=== PATIENT | female | born 1940 | race Caucasian/White ===

== ENCOUNTER 2021-04-26 17:40 | Inpatient (IN) ==
[2021-04-26] MEDS ORDERED: cefTRIAXone 1,000 MG in SODIUM CHLORIDE 0.9% 100 ML IV STA (18:07)
[2021-04-26 18:09] LABS: Basophils % 0.2 % (0.0-0.8); Hemoglobin 8.9 GM/DL (12.0-16.0); Immature Granulocytes % 0.3 %; Immature Granulocytes Absolute 0.03 #; Red Blood Count 3.59 MC/CUMM (3.8-5.5); Red Cell Distribution Width 18.1 % (9.3-17.3)
[2021-04-26] MEDS ORDERED: SODIUM CHLORIDE 0.45% 500 ML IV ONE (18:09)
[2021-04-26 18:17] LABS: INR 1.1; PT Patient Result 11.7 SECS (10.5-12.0); Partial Thromboplastin Time 24.3 SECS (23.8-32.1)
[2021-04-26 18:35] LABS: Eosinophils # 0.3 10*3/uL (0.0-0.87); Eosinophils % 3.5 % (0.00-10.9); Hematocrit 31.4 VOL% (35.7-47.0); Lymphocytes # 2.3 10*3/uL (1.4-4.0); Lymphocytes % 24.8 % (21.3-54.2); Mean Corpuscular HGB Conc 28.3 GM/DL (32-36); Mean Corpuscular Volume 87.5 FL (87-102); Monocytes % 6.2 % (1.7-12.7); Platelet Count 166 T/CUMM (130-400); White Blood Count 9.4 T/CUMM (4-12)
[2021-04-26 18:37] LABS: Alanine Aminotransferase 18 U/L (13-56); Albumin 2.1 G/DL (3.4-5.0); Alkaline Phosphatase 60 U/L (45-117); Aspartate Amino Transferase 10 U/L (0-37); Bilirubin,Total < 0.39 MG/DL (0.20-1.00); Blood Urea Nitrogen 60 MG/DL (7-18); Calcium 9.5 MG/DL (8.5-10.1); Carbon Dioxide 32 MMOL/L (21-32); Estimated Glom Filtration Rate 30 ML/MIN; Glucose 210 MG/DL (74-106); Osmolality,Calculated 351.6 MOS/KG (273-304); Potassium 3.7 MMOL/L (3.5-5.1); Total Protein 7.2 G/DL (6.4-8.2)
[2021-04-26 18:45] LABS: Sodium 167 MMOL/L (136-145)
[2021-04-26 18:50] LABS: Eosinophils 2 % (0-10); Hypochromia 1+; Lymphocytes 18 % (20-55); Segmented Neutrophils 76 % (50-85); Total Cells Counted 100
[2021-04-26 18:51] LABS: Microcytosis 1+
[2021-04-26 18:52] LABS: Platelet Estimate Normal
[2021-04-26] MEDS ORDERED: ASPIRIN EC 325 MG TABLET PO STA (19:01)
[2021-04-26 19:03] LABS: Bacteria,Urine Moderate /HPF (Few); Bilirubin,Urine Negative (Negative); Blood, Urine Negative (Negative); Glucose,Urine (UA) >=500 mg/dL (Negative); Ketones,Urine Negative (Negative); Mucus,Urine Occasional /LPF (Occasional); Nitrite,Urine Negative (Negative); Protein,Urine 30 MG/DL; Squamous Epithelial Cell,Urine Occasional /HPF (0-10); Urine Appearance CLOUDY (Clear); Urine Color Yellow (Yellow); Urine Specific Gravity 1.016 (1.001-1.035); Urine Urobilinogen < 2.0 EU/DL (<2.0)
[2021-04-26 19:18] LABS: Lactic Acid 2.2 MMOL/L (0.4-2.0)
[2021-04-26] MEDS ORDERED: HEPARIN 5,000 UNIT/1 ML VIAL IV ONE (20:10)
[2021-04-26] MEDS ORDERED: MAGNESIUM SULF RIDER 2 GM/50 ML PREMIX IV PRN (20:10)
[2021-04-26] MEDS ORDERED: ALBUTEROL 2.5 MG/3 ML NEB RESP TX PRN (20:17)
[2021-04-26] MEDS ORDERED: GLUCAGON 1 MG VIAL IM PRN (20:21)
[2021-04-26] MEDS ORDERED: DEXTROSE 10% 250 ML BAG IV PRN (20:26)
[2021-04-26] MEDS ORDERED: cefTRIAXone 1,000 MG in SODIUM CHLORIDE 0.9% 100 ML IV SCH (20:30)
[2021-04-26] MEDS ORDERED: HEPARIN DRIP 25,000 UNITS/500 ML PREMIX IV SCH (20:30)
[2021-04-26] MEDS: PANTOPRAZOLE 40 MG VIAL IV SCH (21:15)
[2021-04-26] MEDS: carvediloL 3.125 MG TABLET PO SCH (21:20)
[2021-04-26] MEDS: ATORVASTATIN 80 MG TABLET PO SCH (22:00)
[2021-04-26] MEDS: DEXTROSE 5% 1,000 ML IV SCH (22:06)
[2021-04-26 22:47] VITALS: BP 128/45
[2021-04-27] MEDS ORDERED: INSULIN LISPRO 100 UNIT/ML SUBCUT SCH
[2021-04-27] MEDS: INSULIN LISPRO 100 UNIT/ML SUBCUT SCH ×4 (01:05→18:28)
[2021-04-27 02:45] LABS: Calcium 8.3 MG/DL (8.5-10.1); Osmolality,Calculated 347.9 MOS/KG (273-304); Potassium 3.4 MMOL/L (3.5-5.1); Risk Ratio 3.48
[2021-04-27 03:02] LABS: Basophils % 0.3 % (0.0-0.8); Eosinophils # 0.3 10*3/uL (0.0-0.87); Eosinophils % 3.5 % (0.00-10.9); Hematocrit 28.3 VOL% (35.7-47.0); Hemoglobin 7.9 GM/DL (12.0-16.0); Immature Granulocytes % 0.4 %; Immature Granulocytes Absolute 0.03 #; Lymphocytes # 1.9 10*3/uL (1.4-4.0); Lymphocytes % 26.3 % (21.3-54.2); Mean Corpuscular HGB Conc 27.9 GM/DL (32-36); Mean Corpuscular Volume 88.4 FL (87-102); Monocytes % 5.3 % (1.7-12.7); Neutrophils % 64.2 % (38.7-73.9); Platelet Count 132 T/CUMM (130-400); Red Cell Distribution Width 18.1 % (9.3-17.3); White Blood Count 7.2 T/CUMM (4-12)
[2021-04-27 03:17] LABS: INR 1.1; PT Patient Result 12.2 SECS (10.5-12.0); Partial Thromboplastin Time 46.7 SECS (23.8-32.1)
[2021-04-27 03:29] LABS: Eosinophils 2 % (0-10); Lymphocytes 18 % (20-55); Segmented Neutrophils 76 % (50-85); Total Cells Counted 100
[2021-04-27 03:30] LABS: Hypochromia 1+; Microcytosis 1+; Platelet Estimate Adequate; Spherocytes Few
[2021-04-27 03:31] LABS: Ovalocytes Few
[2021-04-27] MEDS: POTASSIUM CHLORIDE 20 MEQ TABLET PO PRN (05:31)
[2021-04-27] MEDS: DEXTROSE 5% 1,000 ML IV SCH ×3 (05:53→20:27)
[2021-04-27 08:24] LABS: INR 1.1; PT Patient Result 12.5 SECS (10.5-12.0); Partial Thromboplastin Time 51.3 SECS (23.8-32.1)
[2021-04-27] MEDS: carvediloL 3.125 MG TABLET PO SCH ×2 (08:34→21:14)
[2021-04-27] MEDS ORDERED: DIGOXIN 0.25 MG TABLET PO SCH (09:00)
[2021-04-27] MEDS ORDERED: ASPIRIN EC 325 MG TABLET PO SCH (09:00)
[2021-04-27] MEDS ORDERED: POTASSIUM CHLORIDE 20 MEQ TABLET PO ONE (11:39)
[2021-04-27] MEDS: INSULIN GLARGINE 100 UNIT/ML SUBCUT SCH ×2 (11:56→21:16)
[2021-04-27] MEDS: cefTRIAXone 1,000 MG in SODIUM CHLORIDE 0.9% 100 ML IV SCH (18:28)
[2021-04-27] MEDS: ATORVASTATIN 80 MG TABLET PO SCH (21:14)
[2021-04-27] MEDS: PANTOPRAZOLE 40 MG VIAL IV SCH (21:14)
[2021-04-28] MEDS: INSULIN LISPRO 100 UNIT/ML SUBCUT SCH ×4 (00:41→18:44)
[2021-04-28] MEDS ORDERED: ONDANSETRON 4 MG/2 ML VIAL ONE (01:18)
[2021-04-28] MEDS: DEXTROSE 5% 1,000 ML IV SCH ×2 (01:30→22:27)
[2021-04-28] MEDS: ONDANSETRON 4 MG/2 ML VIAL IV PRN ×2 (01:30→19:30)
[2021-04-28 07:30] LABS: Basophils % 0.2 % (0.0-0.8); Eosinophils # 0.3 10*3/uL (0.0-0.87); Eosinophils % 3.6 % (0.00-10.9); Hematocrit 26.7 VOL% (35.7-47.0); Hemoglobin 7.8 GM/DL (12.0-16.0); Immature Granulocytes % 0.5 %; Immature Granulocytes Absolute 0.04 #; Lymphocytes # 2.4 10*3/uL (1.4-4.0); Lymphocytes % 29.6 % (21.3-54.2); Mean Corpuscular HGB Conc 29.2 GM/DL (32-36); Mean Corpuscular Volume 84.8 FL (87-102); Monocytes % 6.4 % (1.7-12.7); Neutrophils % 59.7 % (38.7-73.9); Platelet Count 141 T/CUMM (130-400); Red Blood Count 3.15 MC/CUMM (3.8-5.5); Red Cell Distribution Width 17.2 % (9.3-17.3); White Blood Count 8.1 T/CUMM (4-12)
[2021-04-28 07:52] LABS: Alanine Aminotransferase 16 U/L (13-56); Albumin 1.8 G/DL (3.4-5.0); Alkaline Phosphatase 53 U/L (45-117); Aspartate Amino Transferase 16 U/L (0-37); Bilirubin,Direct < 0.100 MG/DL (0.0-0.20); Bilirubin,Indirect 0.3 MG/DL (0.0-1.0); Bilirubin,Total < 0.39 MG/DL (0.20-1.00); Blood Urea Nitrogen 43 MG/DL (7-18); Calcium 8.3 MG/DL (8.5-10.1); Carbon Dioxide 28 MMOL/L (21-32); Estimated Glom Filtration Rate 39 ML/MIN; Glucose 171 MG/DL (74-106); Potassium 3.8 MMOL/L (3.5-5.1); Sodium 150 MMOL/L (136-145); Total Protein 6.3 G/DL (6.4-8.2)
[2021-04-28 08:57] LABS: Atypical Lymphocytes Few; Eosinophils 1 % (0-10); Lymphocytes 23 % (20-55); Segmented Neutrophils 73 % (50-85); Total Cells Counted 100
[2021-04-28 08:58] LABS: Hypochromia 2+; Microcytosis 1+; Ovalocytes Slight; Platelet Estimate Adequate
[2021-04-28] MEDS ORDERED: MAGNESIUM SULF RIDER 2 GM/50 ML PREMIX IV ONE (09:06)
[2021-04-28] MEDS ORDERED: INSULIN GLARGINE 100 UNIT/ML SUBCUT ONE (09:08)
[2021-04-28] MEDS: carvediloL 3.125 MG TABLET PO SCH ×2 (09:32→21:20)
[2021-04-28] MEDS: APIXABAN 2.5 MG TABLET PO SCH ×2 (09:32→21:20)
[2021-04-28] MEDS: INSULIN GLARGINE 100 UNIT/ML SUBCUT SCH ×2 (09:38→21:23)
[2021-04-28] MEDS: POTASSIUM CHLORIDE 20 MEQ TABLET PO PRN (10:18)
[2021-04-28] MEDS: cefTRIAXone 1,000 MG in SODIUM CHLORIDE 0.9% 100 ML IV SCH (18:43)
[2021-04-28] MEDS ORDERED: ATORVASTATIN 40 MG TABLET PO SCH (21:00)
[2021-04-28] MEDS: PANTOPRAZOLE 40 MG VIAL IV SCH (21:17)
[2021-04-29] MEDS: INSULIN LISPRO 100 UNIT/ML SUBCUT SCH ×4 (00:08→18:45)
[2021-04-29 06:19] LABS: Basophils % 0.1 % (0.0-0.8); Eosinophils # 0.2 10*3/uL (0.0-0.87); Eosinophils % 3.2 % (0.00-10.9); Hematocrit 24.8 VOL% (35.7-47.0); Hemoglobin 7.4 GM/DL (12.0-16.0); Immature Granulocytes % 0.4 %; Immature Granulocytes Absolute 0.03 #; Lymphocytes # 1.8 10*3/uL (1.4-4.0); Lymphocytes % 24.7 % (21.3-54.2); Mean Corpuscular HGB Conc 29.8 GM/DL (32-36); Mean Corpuscular Volume 83.5 FL (87-102); Monocytes % 6.6 % (1.7-12.7); Platelet Count 138 T/CUMM (130-400); Red Blood Count 2.97 MC/CUMM (3.8-5.5); Red Cell Distribution Width 17.3 % (9.3-17.3); White Blood Count 7.4 T/CUMM (4-12)
[2021-04-29 06:37] LABS: Calcium 8.2 MG/DL (8.5-10.1); Osmolality,Calculated 298.8 MOS/KG (273-304); Potassium 3.4 MMOL/L (3.5-5.1)
[2021-04-29 06:38] LABS: Eosinophils 1 % (0-10); Hypochromia 1+; Lymphocytes 24 % (20-55); Microcytosis 1+; Segmented Neutrophils 69 % (50-85); Total Cells Counted 100
[2021-04-29] MEDS: carvediloL 3.125 MG TABLET PO SCH (09:32)
[2021-04-29] MEDS: INSULIN GLARGINE 100 UNIT/ML SUBCUT SCH (10:15)
[2021-04-29] MEDS: APIXABAN 2.5 MG TABLET PO SCH (10:15)
[2021-04-29] MEDS: cefTRIAXone 1,000 MG in SODIUM CHLORIDE 0.9% 100 ML IV SCH (19:00)
== END 2021-04-29 19:14 | DRG 689 ==
LOC: EDUNIT# → EDBD → N.ED 17:40 → SUATTDRO 19:40 → N.ICU 19:40
PROVIDERS: ADMIT Internal Medicine; ATTEND Internal Medicine